=== PATIENT | female | born 1930 | race Caucasian/White ===

== ENCOUNTER 2016-10-17 09:13 | Outpatient (CLI) | payer MEDICARE, OTHER ==
[2016-06-14 12:29] VITALS: BP 148/68
== END 2016-10-17 09:14 ==
LOC: POD 09:13
PROVIDERS: ATTEND Podiatrist Public Medicine
DX: B35.1 Tinea unguium (principal); L60.0 Ingrowing nail; M79.674 Pain in right toe(s); M79.675 Pain in left toe(s)
CPT/HCPCS: 11721; G0463

== ENCOUNTER 2017-01-23 10:48 | Outpatient (CLI) | payer MEDICARE, OTHER ==
[2016-06-14 12:29] VITALS: BP 148/68
== END 2017-01-23 10:50 ==
LOC: POD 10:48
PROVIDERS: ATTEND Podiatrist Public Medicine
DX: B35.1 Tinea unguium (principal); L60.0 Ingrowing nail; M79.675 Pain in left toe(s); M79.674 Pain in right toe(s)
CPT/HCPCS: 11721; G0463

== ENCOUNTER 2017-04-09 09:41 | Outpatient (CLI) | payer MEDICARE, OTHER ==
[2016-06-14 12:29] VITALS: BP 148/68
[2017-04-09 10:27] LABS: eGFR (African) > 60; eGFR (Non-African) > 60
== END 2017-04-09 09:42 ==
LOC: LAB 09:41
PROVIDERS: ATTEND Family Medicine
DX: E78.2 Mixed hyperlipidemia (principal); E03.9 Hypothyroidism, unspecified; E55.9 Vitamin D deficiency, unspecified
CPT/HCPCS: 36415; 80053; 80061; 82306; 84443

== ENCOUNTER 2017-04-24 09:58 | Outpatient (CLI) | payer MEDICARE, OTHER ==
[2016-06-14 12:29] VITALS: BP 148/68
== END 2017-04-24 10:00 ==
LOC: POD 09:58
PROVIDERS: ATTEND Podiatrist Public Medicine
DX: B35.1 Tinea unguium (principal); L60.0 Ingrowing nail; M79.674 Pain in right toe(s); M79.675 Pain in left toe(s)
CPT/HCPCS: 11721; G0463

== ENCOUNTER 2017-08-21 11:24 | Outpatient (CLI) | payer MEDICARE, OTHER ==
[2016-06-14 12:29] VITALS: BP 148/68
== END 2017-08-21 11:25 ==
LOC: POD 11:24
PROVIDERS: ATTEND Podiatrist Public Medicine
DX: B35.1 Tinea unguium (principal); L60.0 Ingrowing nail; M79.674 Pain in right toe(s); M79.675 Pain in left toe(s)
CPT/HCPCS: 11721; G0463

== ENCOUNTER 2017-11-20 10:39 | Outpatient (CLI) | payer MEDICARE, OTHER ==
[2016-06-14 12:29] VITALS: BP 148/68
== END 2017-11-20 10:40 ==
LOC: POD 10:39
PROVIDERS: ATTEND Podiatrist Public Medicine
DX: B35.1 Tinea unguium (principal); L60.0 Ingrowing nail; M79.674 Pain in right toe(s); M79.675 Pain in left toe(s)
CPT/HCPCS: 11721; G0463

== ENCOUNTER 2018-02-19 11:05 | Outpatient (CLI) | payer MEDICARE, OTHER ==
[2016-06-14 12:29] VITALS: BP 148/68
== END 2018-02-19 11:06 ==
LOC: POD 11:05
PROVIDERS: ATTEND Podiatrist Public Medicine
DX: B35.1 Tinea unguium (principal); L60.0 Ingrowing nail; M79.674 Pain in right toe(s); M79.675 Pain in left toe(s)
CPT/HCPCS: 11721; G0463

== ENCOUNTER 2018-04-21 09:09 | Outpatient (CLI) | payer MEDICARE, OTHER ==
[2016-06-14 12:29] VITALS: BP 148/68
[2018-04-21 12:51] LABS: eGFR (Non-African) > 60
== END 2018-04-21 09:11 ==
LOC: LAB 09:09
PROVIDERS: ATTEND Family Medicine
DX: E78.2 Mixed hyperlipidemia (principal); E03.9 Hypothyroidism, unspecified
CPT/HCPCS: 36415; 80053; 80061; 84443